=== PATIENT | female | born 1970 | race Caucasian/White ===

== ENCOUNTER 2017-10-08 07:55 | Day surgery (SDC) | payer OTHER ==
[~2017-10-08] VITALS: Ht 160 cm; Wt 62.3 kg
[~2017-10-08 07:55] MED LIST: 0.9% SODIUM CHLORIDE 10 ML SYRINGE IVP PRN; ASPI81 PO; ATOR10TA84 PO; LISI-661 PO; MECL-111 PO; METF500T6 PO; METO25XL PO; METOPROLOL TARTRATE 50 MG TABLET PO PRN; NITR.4 SL
[2017-10-08 08:26] LABS: ANION GAP 8 mmol/L (8-16); CALCIUM, TOTAL 8.6 mg/dL (8.8-10.5); CARBON DIOXIDE 27 mmol/L (22-29); CHLORIDE 104 mmol/L (98-107); CREATININE 0.63 mg/dL (0.60-1.30); GLOMERULAR FILTR. RATE CALC > 60 mL/min (>60); GLUCOSE,RANDOM 170 mg/dL (70-110); POTASSIUM 3.5 mmol/L (3.5-5.1); SODIUM SERUM 139 mmol/L (136-145); UREA NITROGEN, BLOOD 13 mg/dL (7-18)
[2017-10-08] MEDS ORDERED: METOPROLOL TARTRATE 50 MG TABLET ONE (08:43)
[2017-10-08] MEDS ORDERED: IOVERSOL 350 MG/ML 150 ML VIAL ONE (08:56)
[2017-10-08] MEDS ORDERED: SODIUM CHLORIDE 0.9% 100 ML ONE (08:56)
[2017-10-08] MEDS ORDERED: NITROGLYCERIN 400 MCG/SUBLINGUAL SPRAY 4.9 GM BOTTLE SL ONE (09:17)
[2017-10-08] MEDS ORDERED: METOPROLOL TARTRATE 5 MG/5 ML VIAL ONE ×3 (09:17→09:47)
[2017-10-08] MEDS ORDERED: METOPROLOL TARTRATE 5 MG/5 ML VIAL IVP ONE ×3 (09:25→10:48)
== END 2017-10-08 11:35 | disposition home or self-care (01) ==
LOC: SURGERY 07:55 → EDSTATUS 09:00 → SURGERY 11:35
PROVIDERS: ATTEND Internal Medicine Cardiovascular Disease
DX: I20.8 Other forms of angina pectoris (principal); I25.89 Other forms of chronic ischemic heart disease; I08.1 Rheumatic disorders of both mitral and tricuspid valves; I49.8 Other specified cardiac arrhythmias; E11.9 Type 2 diabetes mellitus without complications; I10 Essential (primary) hypertension; E03.9 Hypothyroidism, unspecified; M47.814 Spondylosis without myelopathy or radiculopathy, thoracic region; F41.8 Other specified anxiety disorders; Z79.2 Long term (current) use of antibiotics; Z79.82 Long term (current) use of aspirin; Z79.84 Long term (current) use of oral hypoglycemic drugs; Z79.899 Other long term (current) drug therapy; Z98.890 Other specified postprocedural states
CPT/HCPCS: 36415; 75574; 80048; 93005; J3490; J7050; Q9967